=== PATIENT | female | born 1970 | race Caucasian/White ===

== ENCOUNTER 2020-10-25 13:52 | Outpatient (CLI) | payer BC ==
--- NOTE | 2020-10-25 14:44 | ULT ---
Transabdominal pelvic ultrasound INDICATION: Lost IUD TECHNIQUE: Grayscale, color Doppler imagesand spectral doppler images were obtained of the pelvis via transabdominal approach only. FINDINGS: UTERUS: Size: 9.8 x 6.3 x 3.9 cm giving estimated total uterine volume of 125 cc. Mass: None Cervix: Within normal limits Endometrial canal: There is a linear echogenic focus seen within the endometrial canal consistent pat ient's IUD. This projects in the expected position. RIGHT OVARY: 2.8 x 2.2 x 1.7 cm. Mass: None. Flow: Normal LEFT OVARY: Left ovary was not visualized. CUL-DE-SAC: No free fluid IMPRESSION: 1. Linear echogenic focus within the endometrial canal consistent patient's reported IUD. This projec ts in expected position on the provided ultrasound images. 2. Nonvisualization of the left ovary. Visualized right ovary appears sonographically normal. 3. No free fluid.
== END 2020-10-25 13:53 | disposition home or self-care (01) ==
LOC: BICULT 13:52
PROVIDERS: ATTEND Nurse Practitioner Women's Health
DX: T83.32XA Displacement of intrauterine contraceptive device, initial encounter (principal)
CPT/HCPCS: 76856